=== PATIENT | male | born 1970 | race Caucasian/White ===

== ENCOUNTER 2019-10-20 12:37 | Outpatient (CLI) | payer OTHER, SELFPAY ==
--- NOTE | ~2019-10-20 | XR_ITS ---
EXAMINATION: XR lumbar spine 2-3V DATE: 10/20/2019 12:58 INDICATION: Low back pain TECHNIQUE: Anteroposterior and lateral views of the lumbar spine, and cone-down lateral view of the l umbosacral junction were obtained. COMPARISON: None. FINDINGS: There is no fracture, dislocation, or subluxation. There is mild loss of intervertebral dis c space height at L5-S1. The vertebral body heights are maintained. Small degenerative osteophytes pr oject from the anterior endplates of multiple vertebral bodies. There is mild facet osteoarthritis at L5-S1. Mesh ventral hernia repair anchors are noted. IMPRESSION: 1. Mild lumbar spondylosis without acute findings. Reviewed, dictated and finalized at location A.
== END 2019-10-20 12:38 | disposition home or self-care (01) ==
LOC: ANHIMG 12:41
PROVIDERS: PCP Family Medicine; Visit Provider Family Medicine
DX: M54.5 Low back pain (principal); G89.29 Other chronic pain; M47.816 Spondylosis without myelopathy or radiculopathy, lumbar region
CPT/HCPCS: 72100

== ENCOUNTER 2022-06-06 00:34 | Day surgery (SDC) | payer OTHER, SELFPAY ==
[2022-06-02 11:15] VITALS: BMI 33.2
[2022-06-06 08:39] VITALS: BP 125/106; PULSE 91; RESP 18; TEMP 36.2; O2SAT 100; BMI 33.0
[2022-06-06] MEDS: LACTATED RINGERS 1,000 ML 150 ML IV CONT (08:53)
--- NOTE | 2022-06-06 09:07 | WPDANESEPPF ---
Anes - Initial Pre Proc Eval Procedure: Operation Date: 06/06/22 09:30 Proposed Procedures p Screening Colonoscopy - Yandel Dorado MD Date/Time: 06/06/22 09:07 Surgeon: Yandel Dorado MD Pre Op Diagnosis: Neoplasm Screen Patient Data Age: 52 Gender: M Height: 1.78 m Weight: 104.6 kg Last Vital Signs Temp 97.2 F L 06/06/22 08:39 Pulse 91 06/06/22 08:39 Resp 18 06/06/22 08:39 BP 125/106 H 06/06/22 08:39 Pulse Ox 100 06/06/22 08:39 O2 Del Method Room Air 06/06/22 08:39 Allergies Allergy/AdvReac Type Severity Reaction Status Date / Time No Known Allergies Allergy Verified 06/02/22 11:12 Home Medications Medication Instructions Recorded Confirmed Type hydrocodone bitartrate 40 mg 40 mg PO DAILY 09/04/21 06/02/22 History tablet,crush resist,extended rel. 24hr (Hysingla [facility]) atorvastatin 40 mg tablet 40 mg PO QPM #30 tabs 09/10/21 06/02/22 Rx amlodipine 10 mg tablet 10 mg PO DAILY #90 tabs 01/06/22 06/02/22 Rx carbidopa 25 mg-levodopa 100 mg 1 tablet PO QHS #90 tabs 03/26/22 06/02/22 Rx tablet (Sinemet) hydrocodone 5 mg-acetaminophen 325 2 tablet PO Q8H PRN Pain 03/26/22 06/02/22 History mg tablet tadalafil 20 mg tablet (Cialis) 20 mg PO DAILY PRN sexual activity 03/26/22 06/02/22 Rx #30 tabs sodium,potassium,mag sulfates 17.5 See Rx Instructions PO .COMPLEX 04/17/22 06/02/22 Rx gram-3.13 gram-1.6 gram oral soln #354 mL (Suprep Bowel Prep Kit) lisinopril 20 1 tablet PO DAILY #90 tabs 05/06/22 06/02/22 Rx mg-hydrochlorothiazide 25 mg tablet Patient hx anesthesia problems: none Family hx anesthesia problems: none Results Review: All pre-operative results and documents have been reviewed as part of the pre-operative evaluation. [facility] Past Medical History Medical History Dyslipidemia Erectile dysfunction Essential (primary) hypertension Restless legs syndrome Surgical History Surgical History History of hernia surgery age 41 x3 times History of lumbosacral spine surgery (~12/2021) L4-5 laminectomy History of vasectomy age 41 [place] teeth extracted age 21 Family History Family History Father Family history of cardiovascular disease Mother Heart disease Sibling Heart disease Social History Social History Smoking status: Never smoker Second hand tobacco smoke exposure: No Alcohol intake: current Alcohol use details: consumes 4 beers weekly, socially Substance use: never Substance use type: does not use Gender identity (if verbalized by the patient): Male Spiritual care concerns: No Agree to blood products: Yes Anes - Eval Final PreProcedure Day of Procedure 06/06/22 09:07 Patient weight: obese Heart: regular rate and rhythm Lungs: clear to auscultation Airway: Mallampati scale class II Neurological: alert and oriented Last oral intake: >/= 8 hours ASA classification: III Emergent: no Anesthetic plan: proceed Anesthesia type and monitoring: general GIVS and standard monitoring Results Review: All pre-operative results and documents have been reviewed as part of the pre-operative evaluation. Informed Consent: The patient's anesthetic plan and its attendant risks and benefits were discussed with the patient/family/POA. Questions were solicited and answers provided to the satisfaction of the patient/family/POA.
--- NOTE | 2022-06-06 09:17 | PM.HPGS ---
History of Present Illness History of Present Illness Consent: Risks, benefits, and alternatives have been discussed and questions answered. Patient agrees to proceed with procedure. Chief complaint: Neoplasm Screen Narrative: Omer Le is a 52 year old male Presents for screening colonoscopy. Patient's current weight appetite and bowel movements are normal. Patient denies abdominal pain. He has had no bleeding. Family history is significant both mother and father have had colon cancer. Patient presents today for screening follow-up colonoscopy. Review of Systems Review of Systems: review of systems noncontributory. [facility] Past Medical History Medical History Dyslipidemia Erectile dysfunction Essential (primary) hypertension Restless legs syndrome Surgical History Surgical History History of hernia surgery age 41 x3 times History of lumbosacral spine surgery (~12/2021) L4-5 laminectomy History of vasectomy age 41 [place] teeth extracted age 21 Family History Family History Father Family history of cardiovascular disease Mother Heart disease Sibling Heart disease Social History Social History Smoking status: Never smoker Second hand tobacco smoke exposure: No Alcohol intake: current Alcohol use details: consumes 4 beers weekly, socially Substance use: never Substance use type: does not use Gender identity (if verbalized by the patient): Male Spiritual care concerns: No Agree to blood products: Yes Meds Home Medications and Allergies Home Medications Medication Instructions Recorded Confirmed Type hydrocodone bitartrate 40 mg 40 mg PO DAILY 09/04/21 06/02/22 History tablet,crush resist,extended rel. 24hr (Hysingla ER) atorvastatin 40 mg tablet 40 mg PO QPM #30 tabs 09/10/21 06/02/22 Rx amlodipine 10 mg tablet 10 mg PO DAILY #90 tabs 01/06/22 06/02/22 Rx carbidopa 25 mg-levodopa 100 mg 1 tablet PO QHS #90 tabs 03/26/22 06/02/22 Rx tablet (Sinemet) hydrocodone 5 mg-acetaminophen 325 2 tablet PO Q8H PRN Pain 03/26/22 06/02/22 History mg tablet tadalafil 20 mg tablet (Cialis) 20 mg PO DAILY PRN sexual activity 03/26/22 06/02/22 Rx #30 tabs sodium,potassium,mag sulfates 17.5 See Rx Instructions PO .COMPLEX 04/17/22 06/02/22 Rx gram-3.13 gram-1.6 gram oral soln #354 mL (Suprep Bowel Prep Kit) lisinopril 20 1 tablet PO DAILY #90 tabs 05/06/22 06/02/22 Rx mg-hydrochlorothiazide 25 mg tablet Allergies Allergy/AdvReac Type Severity Reaction Status Date / Time No Known Allergies Allergy Verified 06/02/22 11:12 Vital Signs Vital Signs - 24 hr 06/06/22 08:39 Temperature 97.2 F L Pulse Rate 91 Respiratory Rate 18 Blood Pressure 125/106 H Pulse Oximetry 100 Oxygen Delivery Room Air Exam Narrative: Physical exam reveals patient to be alert. Vital signs stable. HEENT exam is unremarkable. Patient anicteric. Lungs are clear to auscultation and percussion. Heart is without murmur or extra sounds. Abdomen bowel sounds are present soft nontender with no organomegaly. Digital external rectal exam is normal. Assessment and Plan Assessment and plan (1) Encounter for screening colonoscopy: Code(s): Z12.11 - Encounter for screening for malignant neoplasm of colon Status: Acute Assessment and Plan: Patient presents for screening colonoscopy. He appears to be at average risk for colon polyps.
[2022-06-06 09:49] VITALS: BP 113/68; PULSE 82; RESP 22; O2SAT 96
[2022-06-06 09:59] VITALS: BP 111/80; PULSE 74; RESP 18; O2SAT 95
[2022-06-06 10:09] VITALS: BP 138/97; PULSE 79; RESP 18; O2SAT 96
== END 2022-06-06 10:14 | disposition home or self-care (01) ==
PROVIDERS: PCP Family Medicine; Visit Provider Internal Medicine Gastroenterology
PROC: 0DJD8ZZ Inspection of Lower Intestinal Tract, Via Natural or Artificial Opening Endoscopic (ICD-10-PCS; CPT 45378; principal; 2022-06-06 09:30)
DX: Z12.11 Encounter for screening for malignant neoplasm of colon (principal); D12.5 Benign neoplasm of sigmoid colon; K64.8 Other hemorrhoids; Z80.0 Family history of malignant neoplasm of digestive organs; I10 Essential (primary) hypertension; E78.5 Hyperlipidemia, unspecified
CPT/HCPCS: 45385; 88305; J2704; J7120

== ENCOUNTER → 2023-06-05 08:15 | Outpatient (CLI) | payer OTHER, SELFPAY ==
--- NOTE | ~2023-06-05 | CT_ITS ---
Non-contrast Head CT History: Headache Technique: Axial non-contrast imaging of the brain was performed. Dose reduction technique was used on this scan by utilizing automated exposure control and iterative reconstruction technique. The dose -length product (DLP) was 599.57 mGy-cm. Findings: There is no evidence of intracranial hemorrhage, mass lesion, or acute infarct. Brain par enchyma appears normal. The ventricles and subarachnoid spaces are normal in size. The calvarium ap pears normal. The visualized paranasal sinuses and mastoid air cells are clear. Impression: No significant abnormality seen. Reviewed, dictated and finalized at location . [facility] [employer] Impression: No significant abnormality seen.
== END ==
PROVIDERS: Visit Provider Family Medicine
DX: R51.9 Headache, unspecified (principal); G89.29 Other chronic pain; N63.20 Unspecified lump in the left breast, unspecified quadrant
CPT/HCPCS: 70450